=== PATIENT | female | born 1940 | race Two or more races ===

== ENCOUNTER 2018-03-19 23:06 | Emergency (ER) | payer OTHER ==
[~2018-03-19] VITALS: Ht 152.4 cm; Wt 90.7 kg
[2018-03-19] MEDS ORDERED: HYZAAR 100-12.1 EACH PO (23:20)
[2018-03-19] MEDS ORDERED: ZOCOR5 MG PO (23:20)
[2018-03-19] MEDS ORDERED: FORTAMET1000 MG PO (23:20)
== END 2018-03-20 03:39 | disposition home or self-care (01) ==
LOC: ER 23:06
DX: N81.10 Cystocele, unspecified (principal); N32.89 Other specified disorders of bladder